=== PATIENT | male | born 1955 | race Caucasian/White ===

== ENCOUNTER 2020-01-28 01:03 | Day surgery (SDC) | payer MEDICARE, OTHER, SELFPAY ==
[2020-01-18 10:15] VITALS: BMI 29.0
--- NOTE | 2020-01-28 06:45 | WPDHPUPDATE1 ---
History and Physical Update Update Date/Time: 01/28/20 06:45 History and Physical has been reviewed, including an updated exam of the patient. There are NO changes in the patient's condition. Risks, benefits, and alternatives have been discussed and questions answered. Patient agrees to proceed with procedure.
[2020-01-28 11:15] VITALS: BP 144/93; PULSE 62; RESP 18; TEMP 36.7; O2SAT 97
[2020-01-28] MEDS: LACTATED RINGERS 1,000 ML 30 ML IV CONT ×2 (11:15→13:00)
--- NOTE | 2020-01-28 11:24 | WPDANESEPPF ---
Anes - Initial Pre Proc Eval Procedure: Operation Date: 01/28/20 12:30 Proposed Procedures p Urolift - Carter Headley MD Date/Time: 01/28/20 11:24 Surgeon: Carter Headley MD Pre Op Diagnosis: BPH Patient Data Age: 64 Gender: M Height: 6 ft 1 in Weight: 99.8 kg Allergies Allergy/AdvReac Type Severity Reaction Status Date / Time iohexol Allergy Severe Nausea Verified 01/18/20 10:05 [From contrast - CT, X-RAY] erythromycin base Allergy Unknown Hives Verified 01/18/20 10:03 Sulfa (Sulfonamide Allergy Unknown Hives Verified 01/18/20 10:03 Antibiotics) Home Medications Medication Instructions Recorded Confirmed Type Lacto.acidophilus-Bif.animalis 1 cap PO DAILY 01/18/20 01/18/20 History [Probiotic] armodafinil 150 mg PO QAM 01/18/20 01/18/20 History aspirin [Adult Low Dose Aspirin] 162 mg PO DAILY 01/18/20 01/18/20 History diclofenac sodium 75 mg PO BID 01/18/20 01/18/20 History finasteride 5 mg PO DAILY 01/18/20 01/18/20 History meclizine 25 mg PO PRN PRN 01/18/20 01/18/20 History metoprolol succinate 25 mg PO QPM 01/18/20 01/18/20 History montelukast [Singulair] 10 mg PO DAILY 01/18/20 01/18/20 History lhaloczz-bvm-SV-lycopen-lutein 1 tablet PO DAILY 01/18/20 01/18/20 History [Centrum Silver] omeprazole 40 mg PO DAILY 01/18/20 01/18/20 History rosuvastatin 20 mg PO 3XW 01/18/20 01/18/20 History sertraline [Zoloft] 25 mg PO DAILY 01/18/20 01/18/20 History tamsulosin 0.4 mg PO DAILY 01/18/20 01/18/20 History Patient hx anesthesia problems: none Family hx anesthesia problems: none PMFSH Past Medical History Medical History GERD (gastroesophageal reflux disease) Hyperlipidemia Hypertension Narcolepsy MAXWELL (obstructive sleep apnea) Panic attacks Anes - Eval Final PreProcedure Day of Procedure 01/28/20 11:24 Patient weight: overweight Heart: regular rate and rhythm Lungs: clear to auscultation Airway: Mallampati scale class II Neurological: alert and oriented Last oral intake: >/= 8 hours ASA classification: III Emergent: no Anesthetic plan: proceed Anesthesia type and monitoring: general GIVS and standard monitoring Informed Consent: The patient's anesthetic plan and its attendant risks and benefits were discussed with the patient/family/POA. Questions were solicited and answers provided to the satisfaction of the patient/family/POA.
[2020-01-28] MEDS: ceFAZolin 2 GM/D5W 50 ML 2 GM/50 ML BAG IVPB (11:32)
[2020-01-28] MEDS: LIDOCAINE HCL 2% GEL UROJET 10 ML PKG MUCOUS MEM (11:41)
--- NOTE | 2020-01-28 12:08 | P.OP_ITS ---
Procedure Note - Detailed Date of procedure: 01/28/20 Pre-op diagnosis: BPH Post-op diagnosis: same Procedure performed: UroLift implant Description of procedure: The patient was prepped and draped in a routine fashion after the uneventful induction of a general LMA anesthetic. A 20F cystoscope was inserted into the bladder. The cystoscopy bridge was replaced with a UroLift delivery device. The first treatment site was the patient's rig ht side approximately 1.5cm distal to the bladder neck. The distal tip of the delivery device was then angled laterally approximately 20 degrees at this position to compress the lateral lobe. The trigger was pulled, thereby deploying a needle containing the implant through the prostate. The needle was then retracted, allowing one end of the implant to be delivered to the capsular surface of the prostate. The implant was then tensioned to assure capsular seating and removal of slack monofilament. The device was then angled back toward midline and slowly advanced proximally (typically 3 to 4 mm) until cystoscopic verification of the monofilament being centered in the delivery bay. The urethral end piece was then affixed to the monofilament thereby tailoring the size of the implant. Excess filament was then severed. The delivery device was then re-advanced into the bladder. The delivery device was then replaced with cystoscope and bridge and the implant location and opening effect was confirmed cystoscopically. The same procedure was then repeated on the left side, and two additional implants were delivered just proximal to the verumontanum, again one on right and one on left side of the prostate, following the same technique. Therefore, a total of 4 implants were delivered. A final cystoscopy was conducted first to inspect the location and state of each implant and second, to confirm the presence of a continuous anterior channel was present through the prostatic urethra with irrigation flow turned off. Because of bleeding I did opt to leave an indwelling 18F Aggarwal catheter which I intend to leave overnight. At this point the cystoscope was removed and the patient was taken to the PACU in good condition. Implants: UroLift implants x4 Anesthesia: MAC Surgeon: Carter Headley MD Estimated blood loss (mL): 10 Drains: Yes (18F Aggarwal) Packing: No Pathology: none sent Complications: No immediate complications Condition: stable Disposition: PACU
[2020-01-28 12:09] VITALS: BP 139/93; PULSE 70; RESP 14; O2SAT 99
[2020-01-28 12:30] VITALS: BP 161/93; PULSE 69; RESP 16
[2020-01-28 13:00] VITALS: BP 147/82; PULSE 70; RESP 16
[2020-01-28 13:30] VITALS: BP 147/62; PULSE 64; RESP 16
[2020-01-28 14:00] VITALS: BP 156/74; PULSE 67; RESP 16
--- NOTE | 2020-01-28 14:06 | SUR.PHASEII ---
Margot - DR. MARION IN ROOM, STATED THAT WINKLER CATHETER CAN BE REMOVED AND PT CAN BE DISCHARGED HOME
== END 2020-01-28 14:12 | disposition home or self-care (01) ==
PROVIDERS: PCP Internal Medicine; Visit Provider Urology
PROC: 0T7D8DZ Dilation of Urethra with Intraluminal Device, Via Natural or Artificial Opening Endoscopic (ICD-10-PCS; CPT 52441; principal; 2020-01-28 12:30)
DX: N40.1 Benign prostatic hyperplasia with lower urinary tract symptoms (principal); R35.1 Nocturia; R31.9 Hematuria, unspecified; I10 Essential (primary) hypertension; E78.5 Hyperlipidemia, unspecified; K21.9 Gastro-esophageal reflux disease without esophagitis; G47.33 Obstructive sleep apnea (adult) (pediatric); G47.419 Narcolepsy without cataplexy; F41.0 Panic disorder [episodic paroxysmal anxiety]; Z79.82 Long term (current) use of aspirin
CPT/HCPCS: C9740; A9270; J0690; J2704; J3010; J7120; L8699